=== PATIENT | male | born 1955 ===

== ENCOUNTER → 2018-04-06 21:55 | Outpatient (REF) | payer OTHER, SELFPAY ==
[2018-04-06 23:07] LABS: Vitamin D 25 Hydroxy (D3) 51.9 ng/mL (30.0-100.0)
[2018-04-06 23:59] LABS: Hemoglobin A1C% w Est Avg Glu 5.9 % (4.0-6.0)
[2018-04-07 01:40] LABS: Free T3, Triiodothyronine Free 3.56 pg/mL (2.77-5.27); Free T4, Direct Thyroxine 0.86 ng/dL (0.78-2.19)
[2018-04-07 01:53] LABS: Thyroid Stimulating Hormone 0.95 uIU/mL (0.47-4.68)
[2018-04-07 01:59] LABS: Ferritin 70.8 ng/mL (17.9-464)
[2018-04-07 02:30] LABS: Folate 17.5 ng/mL (2.76-20.0); Vitamin B12 529 pg/mL (239-931)
== END ==
LOC: LAB 21:55
PROVIDERS: Visit Provider Naturopath
DX: E55.9 Vitamin D deficiency, unspecified (principal); G25.81 Restless legs syndrome; G35 Multiple sclerosis; G47.00 Insomnia, unspecified; R53.83 Other fatigue
CPT/HCPCS: 82306; 82607; 82728; 82746; 83036; 84439; 84443; 84481